=== PATIENT | female | born 1980 | race Caucasian/White ===

== ENCOUNTER 2017-01-10 18:59 | Observation (INO) | payer BC ==
[2017-01-10 19:16] VITALS: BMI 28.9
[2017-01-10 19:30] VITALS: TEMP 98.5; O2SAT 100
[2017-01-10 19:39] LABS: ADD MANUAL DIFF? NO
[2017-01-10 19:43] LABS: BASO # 0.01 K/mm3 (0.0-2.0); BASO % 0.1 % (0.0-3.0); EOS # 0.2 (0.0-0.7); EOS % 1.6 % (1.5-5.0); GRAN # 5.35 (1.4-6.5); GRAN % 53.1 % (50.0-68.0); HEMATOCRIT 35.1 % (36.0-48.0); LYMPH # 3.9 (1.2-3.4); LYMPH % 38.7 % (22.0-35.0); MEAN CELL VOLUME 84.4 fL (80.0-105.0); MEAN CORPUSCULAR HEMOGLOBIN 29.3 pg (25.0-35.0); MEAN CORPUSCULAR HGB CONC 34.8 g/dl (31.0-37.0); MEAN PLATELET VOLUME 11.1 fl (7.0-11.0); MONO # 0.7 (0.1-0.6); MONO % 6.5 % (1.0-6.0); PLATELET COUNT 283 10^3/uL (120.0-450.0); RED CELL DISTRIBUTION WIDTH 12.6 % (11.5-14.5); WHITE BLOOD COUNT 10.1 10^3/ul (4.5-11.0)
--- NOTE | 2017-01-10 19:49 | ED PDOC ---
Arrival/HPI - History of Present Illness Time/Duration: Other (1-2 years) Symptom Onset: Gradual Symptom Course: Worsening Quality: Aching, Tightness Severity Level: 5 <Samantha Young - Last Filed: 01/10/17 23:00> <Bart Connolly - Last Filed: 01/10/17 23:14> - General Chief Complaint: Palpitations Time Seen by Provider: 01/10/17 19:14 - History of Present Illness Narrative History of Present Illness (Text): 01/10/17 19:41 36 yo F with h/o HTN presents to ER with c/o L CP radiating to her left arm, neck and back and palpitations intermittently x 1-2 years. Patient states her CP worsened today, thus prompting her ER visit. Patient's is at bedside , who also states the patient is on Verapamil and Bisoprolol and states she primary care physician is in [place]. Patient describes CP as tight, aching worsened with certain movements, deep breaths and feeling anxious. CP radiates to left neck, back and shoulder, only CP has worsened today, no changes in quality. Patient admits to some intermittent shortness of breath and CP with deep inspiration. Denies abd pain, n/v/d/c, fevers, chills, rashes, sick contacts. Patient and state they regularly travel to [place] but have not done so in the past 6 months. (Samantha Young) Past Medical History - Provider Review Nursing Documentation Reviewed: Yes - Cardiac Hx Cardiac Disorders: Yes - Pulmonary Hx Respiratory Disorders: No - Neurological Hx Neurological Disorder: No - HEENT Hx HEENT Disorder: No - Renal Hx Renal Disorder: No - Endocrine/Metabolic Hx Endocrine Disorders: No - Hematological/Oncological Hx Blood Disorders: No - Integumentary Hx Dermatological Disorder: No - Musculoskeletal/Rheumatological Hx Musculoskeletal Disorders: No - Gastrointestinal Hx Gastrointestinal Disorders: No - Genitourinary/Gynecological Hx Genitourinary Disorders: No - Psychiatric Hx Psychophysiologic Disorder: No Hx Substance Use: No <Samantha Young - Last Filed: 01/10/17 23:00> Family/Social History - Physician Review Nursing Documentation Reviewed: Yes Family/Social History: Hypertension Smoking Status: Never Smoked Hx Alcohol Use: No Hx Substance Use: No <Samantha Young - Last Filed: 01/10/17 23:00> Allergies/Home Meds <Samantha Young - Last Filed: 01/10/17 23:00> <Bart Connolly - Last Filed: 01/10/17 23:14> Allergies/Adverse Reactions: Allergies No Known Allergies Allergy (Verified 01/10/17 19:16) Home Medications: Home Meds Medication Instructions Recorded Confirmed Verapamil [Verapamil HCl] 80 mg PO DAILY 01/10/17 01/10/17 Review of Systems - Physician Review All systems were reviewed & negative as marked: Yes - Review of Systems Constitutional: absent: Fatigue, Fevers Eyes: absent: Vision Changes, Photophobia Respiratory: SOB. absent: Cough, Sputum Cardiovascular: Chest Pain (L-sided aching, tight radiating to neck, left arm and back), Palpitations. absent: Edema, Calf Pain, PEÑA, Syncope Gastrointestinal: absent: Abdominal Pain, Constipation, Diarrhea, Nausea, Vomiting, Hematochezia, Hematemesis Genitourinary Female: absent: Dysuria, Frequency Musculoskeletal: Back Pain (left), Neck Pain (left). absent: Arthralgias Skin: absent: Rash, Skin Lesions Neurological: absent: Headache, Dizziness Endocrine: absent: Diaphoresis Hemo/Lymphatic: absent: Easy Bleeding, Easy Bruising Psychiatric: Anxiety <Samantha Young - Last Filed: 01/10/17 23:00> Physical Exam Vital Signs Reviewed: Yes Temperature: Afebrile Blood Pressure: Normal Pulse: Tachycardic (mild, 90s) Respiratory Rate: Normal Appearance: Positive for: Well-Appearing, Non-Toxic, Comfortable Pain Distress: None Mental Status: Positive for: Alert and Oriented X 3 - Systems Exam Head: Present: Atraumatic, Normocephalic Pupils: Present: PERRL Extroacular Muscles: Present: EOMI Conjunctiva: Present: Normal. No: Injected, Icteric Ears: Present: Normal Mouth: Present: Moist Mucous Membranes Neck: Present: Normal Range of Motion. No: Meningeal Signs, JVD Respiratory/Chest: Present: Clear to Auscultation, Good Air Exchange. No: Respiratory Distress, Accessory Muscle Use, Wheezes, Decreased Breath Sounds, Rhonchi Cardiovascular: Present: Normal S1, S2, Tachycardic (90-100). No: Murmurs, Irregular Rhythm Abdomen: Present: Normal Bowel Sounds. No: Tenderness, Distention, Peritoneal Signs, Rebound, Guarding Upper Extremity: Present: Normal Inspection, NORMAL PULSES, Capillary Refill < 2s. No: Cyanosis, Edema Lower Extremity: Present: Normal Inspection, NORMAL PULSES, Capillary Refill < 2 s. No: Edema, CALF TENDERNESS Neurological: Present: GCS=15, CN II-XII Intact, Speech Normal Skin: Present: Warm, Dry, Normal Color. No: Rashes Psychiatric: Present: Alert, Oriented x 3, Normal Concentration, Normal Affect, Anxious <Samantha Young - Last Filed: 01/10/17 23:00> Vital Signs Temp Pulse Resp BP Pulse Ox 01/10/17 23:00 88 18 118/71 100 01/10/17 22:00 84 16 130/73 100 01/10/17 21:00 89 16 132/84 100 01/10/17 20:05 82 18 133/77 100 01/10/17 19:30 85 16 131/75 100 01/10/17 19:00 98.5 F 92 H 16 137/71 100 Medical Decision Making Re-evaluation Time: 20:21 Reassessment Condition: Re-examined, Improved - Lab Interpretations I have reviewed the lab results: Yes - RAD Interpretation Corn Cutter Operator: ED Physician - EKG Interpretation Interpreted by ED Physician: Yes Type: 12 lead EKG Comparison: No previous EKG avail. <Samantha Young - Last Filed: 01/10/17 23:00> <Bart Connolly - Last Filed: 01/10/17 23:14> ED Course and Treatment: 01/10/17 19:47 36 yo F w h/o HTN and HLD presents with 1-2 yr h/o CP and palpitations with worsened CP today. EKG, CXR, labs, d-dimer. ASA. Reassess and dispo. 01/10/17 20:13 HEART score = 1 --> risk of MACE of 0.9-1.7% PERC score = 1 Wells criteria - LOW D-dimer elevated at 0.51 CTA chest to r/o PE Patient states she is feeling better, CP improved, denies arm pain, denies palpitations. 01/10/17 22:22 CTA chest negative for PE and thoracic dissection. 01/10/17 22:44 Patient denies any CP at this time, states her symptoms have resolved at this time. Second troponin <0.01. Discussed clinical impression, lab results. Instructed to followup with cardiology for possible further workup and PMD/ Clinic. Patient and express understanding of plan and are in agreement. (Samantha Young) Patient seen and examined with resident. Came up with treatment and disposition plan with resident. Patient offered an official warp bleaching vat tender, but refused because at bedside was able to translate without any difficulty. Patient is a 36 year old female who presents to the emergency department complaining of left sided chest pain radiating to left arm, neck and back. Patient also states that she has been experiencing intermittent palpitations for 1-2 years. States that chest pain worsened today with some intermittent shortness of breath. No ripping or tearing sensation. Pain is non-exertional. Ordered EKG, Chest X-ray, labs, d-dimer. Patient had positive d-dimer. Ordered CTA chest to rule out PE. pt's HEART score low. 2 sets of cardiac enzymes and an EKG ordered I had a long discussion with patient that our initial evaluation has not shown evidence of a heart attack. Patient verbalized understanding that even if these tests are normal, symptoms may still be a warning sign of a future heart attack and it is very important for patient to arrange outpatient cardiology follow up Patient was agreeable to observation in the emergency room, and understood that this will prolong the length of stay (Bart Connolly) - Lab Interpretations Lab Results: 01/10/17 19:10 01/10/17 19:10 Lab Results 01/10/17 19:10: WBC 10.1, RBC 4.16, Hgb 12.2, Hct 35.1 L, MCV 84.4, MCH 29.3, MCHC 34.8, RDW 12.6, Plt Count 283, MPV 11.1 H, Gran % 53.1, Lymph % (Auto) 38.7 H, [place] % (Auto) 6.5 H, Eos % (Auto) 1.6, Baso % (Auto) 0.1, Gran # 5.35, Lymph # 3.9 H, [place] # 0.7 H, Eos # 0.2, Baso # 0.01, D-Dimer, Quantitative 0.51 H, Sodium 137, Potassium 3.3 L, Chloride 104, Carbon Dioxide 23, Anion Gap 13, BUN 10, Creatinine 0.5, Est GFR ( Amer) > 60, Est GFR (Non-Af Amer) > 60 , Random Glucose 109, Calcium 9.1, Total Bilirubin 0.8, AST 20, ALT 28, Alkaline Phosphatase 95, Troponin I < 0.01, Total Protein 8.5 H, Albumin 4.2, Globulin 4.3, Albumin/Globulin Ratio 1.0 L, TSH 3rd Generation 1.94, Urine HCG, Qual Negative - RAD Interpretation Narrative RAD Interpretations (Text): 01/10/17 20:12 CXR - No acute findings 01/10/17 21:54 CTA negative for PE or dissection. (Samantha Young) Radiology Orders: 01/10/17 19:29 CXR [CHEST TWO VIEWS (PA/LAT)] [RAD] Stat 01/10/17 20:02 ANGIO CHEST PE PROTOCOL [CT] Stat - EKG Interpretation EKG Interpretation (Text): 01/10/17 20:08 Sinus tachycardia, rate 101bpm, normal intervals (DG=559xr, AKa=326dh), no ST/T wave changes indicative of acute ischemia (Samantha Young) - Medication Orders Current Medication Orders: Discontinued Medications Aspirin (Aspirin) 325 mg PO STAT STA Stop: 01/10/17 19:39 Last Admin: 01/10/17 19:51 Dose: 325 MG Sodium Chloride (Sodium Chloride 0.9%) 1,000 mls @ 999 mls/hr IV .Q1H1M STA Stop: 01/10/17 21:56 Last Admin: 01/10/17 21:01 Dose: 999 MLS/HR eMAR Start Stop Document 01/10/17 21:01 YP (Rec: 01/10/17 21:01 YP [id number]) Intravenous Solution Start Date 01/10/17 Start Time 21:01 End Date 01/10/17 End time 22:01 Total Infusion Time 60 Magnesium Sulfate/Dextrose (Magnesium Sulfate 1 Gm/100 Ml D5w) 100 mls @ 100 mls/hr IVPB ONCE ONE Stop: 01/10/17 22:07 Last Admin: 01/10/17 21:53 Dose: 100 MLS/HR eMAR Start Stop Document 01/10/17 21:53 YP (Rec: 01/10/17 21:53 YP [id number]) Intravenous Solution Start Date 01/10/17 Start Time 21:53 End Date 01/10/17 End time 22:53 Total Infusion Time 60 Iodixanol (Visipaque 320 Mg/Ml 100 Ml) Confirm Administered Dose 100 ml IV .STK- MED ONE Stop: 01/10/17 20:38 Potassium Chloride (K-Dur 20 Meq Er Tab) 20 meq PO STAT STA Stop: 01/10/17 20:04 Last Admin: 01/10/17 20:06 Dose: 20 MEQ ED OBSERVATION <Samantha Young - Last Filed: 01/10/17 23:00> Date of observation admission: 01/10/17 Time of observation admission: 19:10 <Bart Connolly - Last Filed: 01/10/17 23:14> - Observation admission statement Patient is being placed in observation because:: Chest pain (Bart Connolly) - Goals of Observation Goals of observation are:: Pending labs, and imaging. Repeat troponins (Bart Connolly) - Progress Note Progress Note: 01/10/17 22:02 CTA chest results interpreted by: Edin Vera MD FINDINGS: Artifacts: Motion artifact does moderately limit the sensitivity of this examination. Pulmonary arteries: No filling defects are seen in the pulmonary arteries or in its visualized tributaries. Aorta: The aorta and the great vessels are normal. Negative for dissection. Lungs: Lungs overall clear. No focal lung consolidation, pulmonary infiltrates, no cavitary changes are seen. Pleural space: Unremarkable. No significant effusion. No pneumothorax. Heart: Unremarkable. No cardiomegaly. No significant pericardial effusion. No evidence of RV dysfunction. Thyroid: The visualized thyroid and the thoracic inlet appear normal. Bones/joints: No acute fracture. No dislocation. Soft tissues: Unremarkable. Lymph nodes: Unremarkable. No enlarged lymph nodes. IMPRESSION: No PE or dissection. No acute process is present in the chest. Examination is limited secondary to motion. (Bart Connolly) <Samantha Young - Last Filed: 01/10/17 23:00> - PA / ACETYLENE CUTTER / Resident Statement KAT has reviewed & agrees with the documentation as recorded. KAT has examined the patient and agrees with the treatment plan. <Bart Connolly - Last Filed: 01/10/17 23:14> - Scribe Statement Selma Gamboa Provider Scribe Attestation: All medical record entries made by the Scribe were at my direction and personally dictated by me. I have reviewed the chart and agree that the record accurately reflects my personal performance of the history, physical exam, medical decision making, and the department course for this patient. I have also personally directed, reviewed, and agree with the discharge instructions and disposition. (Bart Connolly) Disposition/Present on Arrival - Present on Arrival Any Indicators Present on Arrival: No History of DVT/PE: No History of Uncontrolled Diabetes: No Urinary Catheter: No History of Decub. Ulcer: No History Surgical Site Infection Following: None - Disposition Have Diagnosis and Disposition been Completed?: Yes Disposition Time: 19:10 Patient Plan: Discharge <Samantha Young - Last Filed: 01/10/17 23:00> - Disposition Disposition Time: 19:10 <Bart Connolly - Last Filed: 01/10/17 23:14> - Disposition Diagnosis: Chest pain, Palpitations Disposition: HOME/ ROUTINE Patient Problems: Current Active Problems Problem Status Diagnosed Chest pain Acute Palpitations Acute Condition: STABLE
[2017-01-10 19:52] LABS: ALKALINE PHOSPHATASE 95 U/L (38-133); ALT/SGPT 28 U/L (7-56); AST/SGOT 20 U/L (15-39); BILIRUBIN,TOTAL 0.8 mg/dL (0.2-1.3); BLOOD UREA NITROGEN 10 mg/dL (7-21); CALCIUM 9.1 mg/dL (8.4-10.5); CARBON DIOXIDE 23 mmol/L (21-33); CHLORIDE 104 mmol/L (98-107); GFR AFRICAN-AMERICAN > 60; GLUCOSE,RANDOM 109 mg/dL (70-110); POTASSIUM 3.3 mmol/L (3.6-5.0); SODIUM 137 mmol/L (132-148); TOTAL PROTEIN 8.5 g/dL (5.8-8.3)
[2017-01-10] MEDS ORDERED: Potassium Chloride 20 mEq ER Tab PO STA (20:03)
[2017-01-10 20:07] LABS: TROPONIN I < 0.01 ng/mL
[2017-01-10] MEDS ORDERED: Iodixanol 320 MG/ML 100 ML BOTTLE IV ONE (20:37)
[2017-01-10] MEDS ORDERED: Sodium Chloride 0.9% 1,000 ML IV STA (20:56)
[2017-01-10 23:09] VITALS: BP 118/71; PULSE 88; RESP 18
--- NOTE | 2017-01-11 07:31 | RAD ---
HISTORY: CP COMPARISON: None available. TECHNIQUE: Chest PA and lateral FINDINGS: LUNGS: No focal consolidation. Please note that chest x-ray has limited sensitivity for the detection of pulmonary masses. PLEURA: No significant pleural effusion identified. No definite pneumothorax . CARDIOVASCULAR: The cardiomediastinal silhouette appears within normal limits of size. OSSEOUS STRUCTURES: No acute osseous abnormality identified. VISUALIZED UPPER ABDOMEN: Unremarkable. OTHER FINDINGS: None. IMPRESSION: No focal consolidation, significant pleural effusion, or definite pneumothorax identified.
--- NOTE | 2017-01-11 07:48 | CT ---
CT chest with IV contrast Indication: Chest pain, rule out PE Technique: Contiguous axial images were obtained through the chest with intravenous contrast enhancement. Sagittal and coronal reconstructions were generated and reviewed. This CT exam was performed using 1 or more of the falling dose reduction techniques: Automated exposure control, adjustment of the MAA and/or kV according to patient size, and/or use of iterative reconstruction technique. IV Contrast: 96 mL Visipaque Radiation dose (DLP): 586.28 MGy-cm. Comparison: Chest x-ray performed 01/10/17 Findings: Examination limited by motion. Visualized portions of the inferior thyroid gland appear unremarkable. The mediastinal and hilar vascular structures appear within normal limits. The heart appears within normal limits of size. No large central or segmental pulmonary embolus evident. No focal consolidation. No pleural effusion. No pneumothorax. No suspicious pulmonary nodules measuring greater than 5 mm. Limited visualization of the upper abdomen appears grossly unremarkable. No acute osseous abnormality is detected. Impression: Examination limited by motion. No acute findings. Preliminary impression was provided by virtual radiologic.
--- NOTE | 2017-01-11 13:31 | CARD ---
APPROVED REPORT EKG Measurement Heart [id number] <Conclusion> Sinus tachycardia with sinus arrhythmia Otherwise normal ECG
== END 2017-01-10 23:15 | disposition home or self-care (01) ==
LOC: ED 18:59 → EROBSV 20:15
PROVIDERS: ADMIT Emergency Medicine; ATTEND Emergency Medicine
DX: R07.9 Chest pain, unspecified (principal); R00.2 Palpitations
CPT/HCPCS: 71020; 71275; 80053; 84443; 84484; 84703; 85025; 85378; 93005; 96361; 96365; 99285; G0378; J3475; J7040; Q9967